=== PATIENT | female | born 1975 | race Asian ===

== ENCOUNTER 2017-01-30 21:54 | Emergency (ER) | payer OTHER ==
[2017-01-30 23:58] VITALS: BP 116/75
== END 2017-01-30 23:58 | disposition home or self-care (01) ==
LOC: ED 21:54
DX: H10.89 Other conjunctivitis (principal); J98.01 Acute bronchospasm; E11.9 Type 2 diabetes mellitus without complications; H92.09 Otalgia, unspecified ear